=== PATIENT | female | born 1945 | race Caucasian/White ===

== ENCOUNTER 2018-09-02 16:32 | Emergency (ER) | payer MEDICARE, OTHER ==
[~2018-09-02] VITALS: Ht 157.5 cm; Wt 54.4 kg
--- NOTE | 2018-09-02 16:34 | NUR ---
PT BIBA ALS TO BED 11 Addendum: 09/02/18 at 1636 by [facility] BED 12
[2018-09-02 16:35] VITALS: BP 142/80
[2018-09-02] MEDS ORDERED: cefTRIAXone 1,000 MG in DEXT 5% MINI-BAG PLUS 50 ML IV ONE (16:50)
--- NOTE | 2018-09-02 17:00 | NUR ---
BROUGHT IN BY EMS FROM HOME C/O SOB , WHEEZING WITH DECREASED BREATH SOUNDS TO LOWER LOBES COUGH--MILD TO MOD ACCESSORY MUSCLE USE NOTED TO NARES AND SUPRACLAVICULAR ACCESSORY MUSCLE USE NOTED
[2018-09-02 17:24] LABS: BASOPHILS % (AUTO) 0.2 % (0.0-2.0); EOSINOPHILS % (AUTO) 0.1 % (0.0-4.0); HEMATOCRIT 42.1 % (36-48); HEMOGLOBIN 13.9 g/dL (12.0-16.0); LYMPHOCYTES # (AUTO) 2.4 K/uL (2.5-16.5); LYMPHOCYTES % (AUTO) 35.4 % (20.5-51.1); MEAN CORPUSCULAR HEMOGLOBIN 31 pg (27-31); MEAN CORPUSCULAR HGB CONC 33 g/dL (33-37); MEAN CORPUSCULAR VOLUME 93.1 fL (80-94); MONOCYTES # (AUTO) 0.3 K/uL (0.8-1.0); MONOCYTES % (AUTO) 5.2 % (1.7-9.3); NEUTROPHILS % (AUTO) 59.1 % (42.2-75.2); PLATELET COUNT (AUTO) 284 K/uL (140-450); RED BLOOD CELL COUNT(AUTO) 4.52 MIL/uL (4.20-5.40); RED CELL DISTRIBUTION WIDTH 13.6 % (11.6-13.7); WHITE BLOOD COUNT (AUTO) 6.7 K/uL (4.8-10.8)
[2018-09-02 17:38] LABS: ANION GAP 6.7 (8-16); CARBON DIOXIDE 35.8 mmol/L (21-32); CHLORIDE 102 mmol/L (98-107); CREATININE 1.6 mg/dL (0.6-1.3); GLUCOSE 137 mg/dL (74-106); POTASSIUM 3.5 mmol/L (3.5-5.1); SODIUM SERUM 141 mmol/L (136-145); UREA NITROGEN, BLOOD 19 mg/dL (7-18)
[2018-09-02] MEDS ORDERED: cefTRIAXone 1,000 MG VIAL ONE (17:38)
[2018-09-02 17:50] LABS: ALBUMIN 3.1 g/dL (3.4-5.0); ASPARTATE AMINOTRANSFERASE 39 U/L (15-37); TOTAL BILIRUBIN 0.2 mg/dL (0.0-1.0)
[2018-09-02] MEDS ORDERED: NACL 0.9% 1,000 ML IV ONE (17:50)
[2018-09-02 18:06] LABS: APPEARANCE,URINE CLEAR (CLEAR); BILIRUBIN,URINE NEGATIVE (NEGATIVE); BLOOD, URINE 1+ (NEGATIVE); COLOR,URINE YELLOW (YELLOW); LEUKOCYTE ESTERASE ,URINE NEGATIVE (NEGATIVE); NITRITE, URINE NEGATIVE (NEGATIVE); PH,URINE 8.5 (5.0-9.0); UGLUCOSE NEGATIVE (NEGATIVE)
--- NOTE | 2018-09-02 18:15 | NUR ---
PT COMPLAINS OF BEING COLD, BLANKETS PROVIDED.
[2018-09-02 18:32] LABS: RBC,URINE 0-5 (RARE) /HPF (0-5); WBC,URINE 0-5 (RARE) /HPF (0-5)
--- NOTE | 2018-09-02 19:15 | NUR ---
REPORT GIVEN TO RENETTA FERRIS.
--- NOTE | 2018-09-02 19:15 | NUR ---
PT SITTING UP IN BED, VSS
--- NOTE | 2018-09-02 20:06 | NUR ---
DR. OLVERA EVALUATING AT BEDSIDE.
[2018-09-02] MEDS ORDERED: ALBUTEROL SULFATE/IPRATROPIU 3 ML SOL IH ONE (20:25)
[2018-09-02] MEDS ORDERED: KETOROLAC 30 MG/ML VIAL IVP ONE (20:25)
--- NOTE | 2018-09-02 22:00 | NUR ---
PT DOES NOT KNOW WHAT MEDICATION SHE IS ON. DAUGHTER WILL BRING THE MEDICATION TOMORROW.
[2018-09-02] MEDS ORDERED: ASPIRIN 81 MG TAB.CHEW PO ONE (22:20)
[2018-09-02] MEDS ORDERED: PRED10TA5 PO (23:10)
[2018-09-02] MEDS ORDERED: DOCU-299 PO (23:10)
[2018-09-02] MEDS ORDERED: ATOR20TA PO (23:10)
[2018-09-02] MEDS ORDERED: CHOL5000 PO (23:10)
[2018-09-02] MEDS ORDERED: LISI10TA11 PO (23:10)
[2018-09-02] MEDS ORDERED: BECL10.62 IH (23:10)
[2018-09-02] MEDS ORDERED: ASPI-1205 PO (23:10)
[2018-09-02] MEDS ORDERED: ALBU0.0912 IH ×2 (23:10)
--- NOTE | 2018-09-02 23:36 | NUR ---
PT SITTING UP IN BED, FAMILY AT BEDSIDE. PT VITALS STABLE
--- NOTE | 2018-09-03 01:40 | NUR ---
SPOKE TO AN TRANSFER RN FROM [facility] REGARDING STABILITY OF PT. PT VSS FOR TRANSFER. BENITO STATON MADE AWARE.
--- NOTE | 2018-09-03 02:00 | NUR ---
GAVE REPORT TO [facility] NURSE NAOMI RN. VSS [facility] ETA 5 MIN.
[2018-09-03 02:10] VITALS: BP 125/62
--- NOTE | 2018-09-03 02:10 | NUR ---
[facility] IS IN ROUTE TO [facility]. ETA 30 MIN. GAVE REPORT TO MANGLE FEEDER. PT VSS. PT TOLERATED TRANSFER WELL. ER MD MADE AWARE.
== END 2018-09-03 02:10 | disposition short-term general hospital (02) ==
LOC: MED 16:32
DX: J44.1 Chronic obstructive pulmonary disease with (acute) exacerbation (principal); I10 Essential (primary) hypertension; E78.5 Hyperlipidemia, unspecified; F17.210 Nicotine dependence, cigarettes, uncomplicated; Z79.82 Long term (current) use of aspirin; Z79.899 Other long term (current) drug therapy; Z88.8 Allergy status to other drugs, medicaments and biological substances
CPT/HCPCS: 36415; 36600; 71045; 80053; 81001; 82550; 82803; 83605; 83880; 84484; 85025; 87040; 87086; 93005; 94640; 94760; 96365; 96375; 99285; J0696; J1885; J7030; J7060; J7620; 99284

== ENCOUNTER 2023-04-13 15:37 | Emergency (ER) | payer MEDICARE, OTHER ==
[~2023-04-13] VITALS: Ht 154.9 cm; Wt 65.8 kg
[~2023-04-13 15:37] MED LIST: ALBU0.0912 IH; ASPI-1205 PO; ATOR20TA PO; BECL10.62 IH; CHOL5000 PO; DOCU-299 PO; LISI-486 PO; PRED10TA5 PO
[2023-04-13 15:39] VITALS: BP 154/69; PULSE 65; RESP 22; TEMP 97.8; O2SAT 96
[2023-04-13] MEDS ORDERED: LORazepam 0.5 MG TAB PO ONE (16:40)
[2023-04-13 17:18] LABS: BASOPHILS % (AUTO) 0.5 % (0.0-2.0); EOSINOPHILS # (AUTO) 0.3 K/uL (0-0.4); EOSINOPHILS % (AUTO) 4.2 % (0.0-4.0); HEMATOCRIT 40.4 % (36-48); HEMOGLOBIN 13.7 g/dL (12.0-16.0); LYMPHOCYTES # (AUTO) 2.3 K/uL (2.5-16.5); LYMPHOCYTES % (AUTO) 30.9 % (20.5-51.1); MEAN CORPUSCULAR HEMOGLOBIN 31 pg (27-31); MEAN CORPUSCULAR HGB CONC 34 g/dL (33-37); MEAN CORPUSCULAR VOLUME 91.2 fL (80-94); MONOCYTES # (AUTO) 0.4 K/uL (0.8-1.0); NEUTROPHILS # (AUTO) 4.4 K/uL (1.8-7.7); NEUTROPHILS % (AUTO) 59.4 % (42.2-75.2); PLATELET COUNT (AUTO) 309 K/uL (140-450); RED BLOOD CELL COUNT(AUTO) 4.43 MIL/uL (4.20-5.40); WHITE BLOOD COUNT (AUTO) 7.4 K/uL (4.8-10.8)
[2023-04-13 17:46] LABS: ALANINE AMINOTRANSFERASE 19 U/L (12-78); ALBUMIN 3.9 g/dL (3.4-5.0); ALKALINE PHOSPHATASE 77 U/L (50-136); ANION GAP 13.6 (8-16); ASPARTATE AMINOTRANSFERASE 20 U/L (15-37); CALCIUM 9.3 mg/dL (8.5-10.1); CARBON DIOXIDE 23.2 mmol/L (21-32); CHLORIDE 106 mmol/L (98-107); CREATININE 1.5 mg/dL (0.6-1.3); GLUCOSE 124 mg/dL (74-106); POTASSIUM 3.8 mmol/L (3.5-5.1); SODIUM SERUM 139 mmol/L (136-145); TOTAL BILIRUBIN 0.4 mg/dL (0.0-1.0); TOTAL PROTEIN, SERUM 7.3 g/dL (6.4-8.2); UREA NITROGEN, BLOOD 17 mg/dL (7-18)
[2023-04-13] MEDS ORDERED: ACETAMINOPHEN 325 MG TAB PO ONE (19:15)
[2023-04-13] MEDS ORDERED: ASPIRIN 81 MG TAB.CHEW PO ONE (20:55)
[2023-04-13] MEDS ORDERED: ZOLPIDEM 5 MG TAB PO ONE (21:20)
[2023-04-13] MEDS ORDERED: MORPHINE SULFATE 2 MG/ML SYR IVP ONE (21:50)
[2023-04-14] MEDS ORDERED: MORPHINE SULFATE 4 MG/ML SYR IVP ONE (00:50)
[2023-04-14 01:45] VITALS: BP 127/48; PULSE 52; RESP 14; TEMP 97.9; O2SAT 95
== END 2023-04-14 02:00 | disposition short-term general hospital (02) ==
LOC: MED 15:37
DX: R06.02 Shortness of breath (principal); Z20.822 Contact with and (suspected) exposure to COVID-19; R77.8 Other specified abnormalities of plasma proteins; F41.9 Anxiety disorder, unspecified; J44.9 Chronic obstructive pulmonary disease, unspecified; I10 Essential (primary) hypertension; Z91.040 Latex allergy status; Z79.82 Long term (current) use of aspirin
CPT/HCPCS: 36415; 71045; 80053; 83880; 84443; 84484; 85025; 87426; 93005; 96374; 96376; 99285; J2270